=== PATIENT | female | born 1965 | race Caucasian/White ===

== ENCOUNTER 2017-06-20 03:54 | Inpatient (IN) | END 2017-06-21 17:25 | disposition left against medical advice (07) | DRG 812 ==

== ENCOUNTER 2017-06-22 11:32 | Inpatient (IN) | END 2017-06-25 12:50 | disposition home health service (06) | DRG 812 ==

== ENCOUNTER 2017-07-17 19:47 | Emergency (ER) | END 2017-07-17 21:39 | disposition home or self-care (01) ==